=== PATIENT | female | born 2000 | race Hispanic/Latino ===

== ENCOUNTER → 2021-08-14 | Outpatient (CLI) | payer OTHER ==
[~2021-08-14] MED LIST: ISOVUE-300 61% 50ML VIAL As Ordered ONE; LIDOCAINE 1% MDV 20ML VIAL As Ordered ONE; TRIAMCINOLONE ACETONIDE SUSP 40 MG/ML VIAL (J3301) As Ordered ONE
== END ==
LOC: M RADPRO 10:55
PROVIDERS: ATTEND Physician Assistant Surgical
DX: M24.851 Other specific joint derangements of right hip, not elsewhere classified (principal)
CPT/HCPCS: 20610; 77002; J3301; Q9967

== ENCOUNTER 2021-09-02 17:31 | Emergency (ER) | payer OTHER ==
[~2021-09-02] VITALS: Ht 157.5 cm; Wt 70.4 kg
[2021-09-02] MEDS ORDERED: NEXP1IMP SC (17:38)
[2021-09-02 19:03] LABS: HEMATOCRIT 42.1 % (36.0-47.0); MEAN CORPUSCULAR HEMOGLOBIN 30.3 pg (27.0-33.0); MEAN CORPUSCULAR HGB CONC 33.3 g/dl (32.0-36.5); MEAN CORPUSCULAR VOLUME 91.1 fl (80.0-96.0); PLATELET COUNT, AUTOMATED 267 10^3/uL (150-450); RED BLOOD COUNT 4.62 10^6/uL (4.00-5.40); WHITE BLOOD COUNT 6.8 10^3/uL (4.0-10.0)
[2021-09-02 19:09] LABS: AMPHETAMINES LEVEL URINE NEGATIVE (NEGATIVE); BARBITURATES URINE NEGATIVE (NEGATIVE); BENZODIAZEPINES URINE NEGATIVE (NEGATIVE); CANNABINOIDS URINE NEGATIVE (NEGATIVE); COCAINE METABOLITE URINE NEGATIVE (NEGATIVE); METHADONE URINE NEGATIVE (NEGATIVE); OPIATES URINE NEGATIVE (NEGATIVE); PHENCYCLIDINE URINE NEGATIVE (NEGATIVE)
[2021-09-02 19:36] LABS: ACETAMINOPHEN LEVEL < 2.0 UG/ML (10.0-30.0); ALBUMIN 4.3 GM/DL (3.2-5.2); ALT/SGPT 27 U/L (12-78); BILIRUBIN,DIRECT < 0.1 MG/DL (0.0-0.2); BILIRUBIN,TOTAL 0.2 MG/DL (0.2-1.0); BLOOD UREA NITROGEN 12 MG/DL (7-18); CALCIUM LEVEL 9.7 MG/DL (8.5-10.1); CARBON DIOXIDE LEVEL 27 MEQ/L (21-32); CHLORIDE LEVEL 107 MEQ/L (98-107); CREATININE FOR GFR 0.67 MG/DL (0.55-1.30); ETHYL ALCOHOL (ETHANOL) < 0.003 % (0.000-0.010); GLOMERULAR FILTRATION RATE > 60.0 (>60); GLUCOSE, FASTING 93 MG/DL (70-100); POTASSIUM SERUM 4.2 MEQ/L (3.5-5.1); SALICYLATE LEVEL < 1.7 MG/DL (5.0-30.0); SODIUM LEVEL 139 MEQ/L (136-145); TOTAL PROTEIN 7.8 GM/DL (6.4-8.2)
[2021-09-02 19:42] LABS: HCG, SERUM QUALITATIVE NEGATIVE (NEGATIVE)
[2021-09-03] MEDS ORDERED: VITATAB73 PO (00:48)
[2021-09-03] MEDS ORDERED: VITA-168 PO (00:48)
[2021-09-03] MEDS ORDERED: HOME MED LIST COMPLETE! XX SCH (00:50)
[2021-09-03 03:08] LABS: APPEARANCE, URINE CLEAR (CLEAR); BACTERIA, URINE AUTO NEGATIVE (NEGATIVE); BILIRUBIN, URINE AUTO NEGATIVE (NEGATIVE); BLOOD, URINE BLOOD NEGATIVE (NEGATIVE); COLOR, URINE YELLOW (YELLOW); GLUCOSE, URINE (UA) AUTO NEGATIVE (NEGATIVE); KETONE, URINE AUTO NEGATIVE (NEGATIVE); LEUKOCYTE ESTERASE, URINE AUTO NEGATIVE (NEGATIVE); MUCUS, URINE SMALL (NEGATIVE); NITRITE, URINE AUTO NEGATIVE (NEGATIVE); PROTEIN, URINE AUTO NEGATIVE (NEGATIVE); RBC, URINE AUTO 1 /HPF (0-3); SPECIFIC GRAVITY URINE AUTO 1.023 (1.002-1.035); SQUAMOUS EPITHELIAL CELL UR AU 1 /HPF (0-6); WBC, URINE AUTO 0 /HPF (0-3)
[2021-09-03 10:19] VITALS: BP 134/73
== END 2021-09-03 10:24 ==
LOC: M ED 17:31
DX: R45.851 Suicidal ideations (principal); F33.9 Major depressive disorder, recurrent, unspecified; Z79.3 Long term (current) use of hormonal contraceptives

== ENCOUNTER 2021-09-09 01:32 | Emergency (ER) | payer OTHER ==
[~2021-09-09] VITALS: Ht 157.5 cm; Wt 69.5 kg
[~2021-09-09 01:32] MED LIST changes: -ISOVUE-300 61% 50ML VIAL As Ordered ONE; -LIDOCAINE 1% MDV 20ML VIAL As Ordered ONE; +NEXP1IMP SC; -TRIAMCINOLONE ACETONIDE SUSP 40 MG/ML VIAL (J3301) As Ordered ONE; +VITA-168 PO; +VITATAB73 PO
[2021-09-09] MEDS ORDERED: LEXA1TAB PO (01:43)
[2021-09-09 02:34] LABS: BASO % 0.3 % (0.0-1.0); EOS # 0.1 10^3/uL (0.0-0.5); EOS % 1.6 % (0.0-3.0); HEMATOCRIT 42.4 % (36.0-47.0); HEMOGLOBIN 14.1 g/dl (12.0-15.5); LYMPH # 1.7 10^3/uL (1.5-5.0); LYMPH % 18.8 % (24.0-44.0); MEAN CORPUSCULAR HGB CONC 33.3 g/dl (32.0-36.5); MEAN CORPUSCULAR VOLUME 90.2 fl (80.0-96.0); MONO # 0.9 10^3/uL (0.0-0.8); MONO % 10.4 % (2.0-8.0); NEUTROPHILS # 6.2 10^3/uL (1.5-8.5); NEUTROPHILS % 68.6 % (36.0-66.0); PLATELET COUNT, AUTOMATED 302 10^3/uL (150-450)
[2021-09-09 02:52] LABS: HCG, SERUM QUALITATIVE NEGATIVE (NEGATIVE)
[2021-09-09 02:53] LABS: ALBUMIN 3.9 GM/DL (3.2-5.2); ALT/SGPT 21 U/L (12-78); BILIRUBIN,DIRECT < 0.1 MG/DL (0.0-0.2); BILIRUBIN,TOTAL 0.2 MG/DL (0.2-1.0); BLOOD UREA NITROGEN 10 MG/DL (7-18); CALCIUM LEVEL 9.3 MG/DL (8.5-10.1); CARBON DIOXIDE LEVEL 25 MEQ/L (21-32); CHLORIDE LEVEL 110 MEQ/L (98-107); CREATININE FOR GFR 0.81 MG/DL (0.55-1.30); GLOMERULAR FILTRATION RATE > 60.0 (>60); GLUCOSE, FASTING 96 MG/DL (70-100); LIPASE 110 U/L (73-393); POTASSIUM SERUM 4.5 MEQ/L (3.5-5.1); SODIUM LEVEL 143 MEQ/L (136-145); TOTAL PROTEIN 7.6 GM/DL (6.4-8.2)
[2021-09-09] MEDS ORDERED: ONDA4TAB6 PO (06:42)
[2021-09-09 06:45] VITALS: BP 121/79
== END 2021-09-09 06:58 | disposition home or self-care (01) ==
LOC: M ED 01:32
DX: R10.9 Unspecified abdominal pain (principal); R11.2 Nausea with vomiting, unspecified; F33.9 Major depressive disorder, recurrent, unspecified; Z87.820 Personal history of traumatic brain injury; Z79.899 Other long term (current) drug therapy; Z79.3 Long term (current) use of hormonal contraceptives

== ENCOUNTER 2021-12-03 16:45 | Emergency (ER) | payer OTHER ==
[~2021-12-03] VITALS: Ht 157.5 cm; Wt 74.5 kg
[2021-12-03 16:45] VITALS: BP 118/74
[~2021-12-03 16:45] MED LIST changes: +LEXA1TAB PO; +ONDA4TAB6 PO
[2021-12-03 18:56] LABS: GC DNA AMPLIFICATION NEGATIVE (NEGATIVE)
[2021-12-03] MEDS ORDERED: DOXY-443 PO (20:03)
[2021-12-03] MEDS ORDERED: DOXYCYCLINE HYCLATE 100MG TABLET PO ONE (20:05)
[2021-12-03] MEDS ORDERED: LIDOCAINE 1% SDV 5ML VIAL DILUENT ONE (20:05)
[2021-12-03] MEDS ORDERED: cefTRIAXone 500MG VIAL (J0696 PER 250MG) IM ONE (20:05)
== END 2021-12-03 20:20 | disposition home or self-care (01) ==
LOC: M ED 16:45
DX: Z20.2 Contact with and (suspected) exposure to infections with a predominantly sexual mode of transmission (principal); Z79.3 Long term (current) use of hormonal contraceptives
CPT/HCPCS: 81001; 87661; 87810; 87850; 96372; 99282; J0696

== ENCOUNTER → 2022-01-18 | Outpatient (REF) ==
[~2022-01-18] MED LIST changes: +DOXY-443 PO
== END ==
LOC: M PLAIMG 10:07
PROVIDERS: ATTEND Internal Medicine
DX: R06.02 Shortness of breath (principal)